=== PATIENT | female | born 2000 | race Caucasian/White ===

== ENCOUNTER 2022-08-05 22:59 | Emergency (ER) | payer OTHER ==
[~2022-08-05] VITALS: Ht 144.8 cm; Wt 49.0 kg
[2022-08-05] MEDS ORDERED: NALO4SPR BOTHNSTRLS (23:06)
[2022-08-05 23:20] VITALS: BP 102/56
== END 2022-08-05 23:20 | disposition home or self-care (01) ==
LOC: ER 22:59
DX: Z02.89 Encounter for other administrative examinations (principal)
CPT/HCPCS: 99283